=== PATIENT | female | born 1945 | race Caucasian/White ===

== ENCOUNTER 2018-01-12 20:31 | Emergency (ER) | payer MEDICARE, OTHER ==
--- NOTE | 2018-01-12 22:55 | EDM.PDOC ---
ED HPI GENERAL MEDICAL PROBLEM - General Chief Complaint: [employer] Problem Stated Complaint: VAGINAL BLEEDING/BLOOD CLOTS Time Seen by Provider: 01/12/18 21:11 Source of Information: Reports: Patient History Limitations: Reports: No Limitations - History of Present Illness INITIAL COMMENTS - FREE TEXT/NARRATIVE: 72-year-old female presents for evaluation and treatment of vaginal bleeding. Patient reports since August she has had some spotting. She estimates 1-2 tablespoons about every 6 weeks. She states today about 3 hours prior to arrival in the ER she started bleeding heavily. Reports that she is passing about baseball-sized clots. She has changed about 4 or 5 pads in the 3 hours since this started. She reports associated symptoms of dizziness, lightheadedness and headaches. She denies any chest pain, dysuria, increased urinary frequency, abdominal pain, pelvic pain or cramping or any bloody stools. She denies any hematuria. Patient reports the last 20 years she has been postmenopausal. She reports in July or August she fell and landed on her buttocks and back. Since then she's had some back pain on and off. patient is not on any blood thinners other than 81 mg aspirin daily. She also has a history of diabetes and hypertension. Primary care provider is Myrna Holden. - Related Data Allergies Allergy/AdvReac Type Severity Reaction Status Date / Time codeine Allergy Nausea and Verified 01/12/18 20:41 Vomiting ED ROS GENERAL - Review of Systems Review Of Systems: See Below Cardiovascular: Reports: Lightheadedness. Denies: Chest Pain GI/Abdominal: Denies: Abdominal Pain, Bloody Stool : Reports: Other (reports vaginal bleeding, passing baseball sized clots). Denies: Dysuria, Pain Musculoskeletal: Reports: Back Pain Neurological: Reports: Dizziness, Headache. Denies: Syncope ED EXAM, GI/ABD - Physical Exam Exam: See Below Exam Limited By: No Limitations General Appearance: Alert, WD/WN, No Apparent Distress, Obese Throat/Mouth: Normal Inspection, Normal Voice, No Airway Compromise Respiratory/Chest: No Respiratory Distress, Lungs Clear, Normal Breath Sounds Cardiovascular: Normal Peripheral Pulses, Regular Rate, Rhythm, No Murmur (Female) Exam: Normal Speculum Exam, Vaginal Bleeding Neurological: Alert, Oriented, Normal Cognition Psychiatric: Normal Affect, Normal Mood Skin Exam: Warm, Dry, Normal Color Course - Vital Signs Last Recorded V/S: Last Vital Signs Temp 97.1 F 01/12/18 20:37 Pulse 50 L 01/12/18 20:37 Resp 16 01/12/18 20:37 BP 186/95 H 01/12/18 20:37 Pulse Ox 99 01/12/18 20:37 Orthostatic Blood Pressure [ 118/54 Standing] Orthostatic Blood Pressure [ 132/62 Supine] - Orders/Labs/Meds Orders: Active Orders 24 hr Category Date Time Status Orthostatic Vital Signs [RC] ASDIRECTED Care 01/12/18 21:33 Active Pelvic Exam, Set Up [RC] ASDIRECTED Care 01/12/18 21:33 Active UA W/MICROSCOPIC [URIN] Stat Lab 01/12/18 21:55 Ordered Labs: Laboratory Tests 01/12/18 01/12/18 01/12/18 Range/Units 21:25 21:25 21:25 WBC 7.71 (3.98-10.04) K/mm3 RBC 4.59 (3.98-5.22) M/mm3 Hgb 13.9 (11.2-15.7) gm/L Hct 42.1 (34.1-44.9) % MCV 91.7 (79.4-94.8) fl MCH 30.3 (25.6-32.2) pg MCHC 33.0 (32.2-35.5) g/dl RDW Std Deviation 44.9 (36.4-46.3) fL Plt Count 132 L (182-369) K/mm3 MPV 11.2 (9.4-12.3) fl Neutrophils % (Manual) 61 H (40-60) % Band Neutrophils % 0 (0-10) % Lymphocytes % (Manual) 28 (20-40) % Atypical Lymphs % 0 % Monocytes % (Manual) 9 (2-10) % Eosinophils % (Manual) 2 (0.7-5.8) % Basophils % (Manual) 0 L (0.1-1.2) Platelet Estimate Adequate Plt Morphology Comment Normal RBC Morph Comment Normal PT 10.3 (9.5-12.1) SECONDS INR 0.94 APTT 25 (24-31) SECONDS Sodium 140 (136-145) mEq/L Potassium 3.9 (3.5-5.1) mEq/L Chloride 104 (98-107) mEq/L Carbon Dioxide 24 (21-32) mEq/L Anion Gap 15.9 H (5-15) BUN 20 H (7-18) mg/dL Creatinine 0.9 (0.55-1.02) mg/dL Est Cr Clr Drug Dosing 55.75 mL/min Estimated GFR (MDRD) > 60 (>60) mL/min BUN/Creatinine Ratio 22.2 H (14-18) Glucose 165 H (83-115) mg/dL Calcium 9.2 (8.5-10.1) mg/dL Total Bilirubin 0.3 (0.2-1.0) mg/dL AST 20 (15-37) U/L ALT 28 (14-59) U/L Alkaline Phosphatase 84 (46-116) U/L Total Protein 8.1 (6.4-8.2) g/dl Albumin 3.9 (3.4-5.0) g/dl Globulin 4.2 gm/dL Albumin/Globulin Ratio 0.9 L (1-2) Urine Color (Yellow) Urine Appearance (Clear) Urine pH (5.0-8.0) Ur Specific [place] (1.005-1.030) Urine Protein (Negative) Urine Glucose (UA) (Negative) Urine Ketones (Negative) Urine Occult Blood (Negative) Urine Nitrite (Negative) Urine Bilirubin (Negative) Urine Urobilinogen (0.2-1.0) Ur Leukocyte Esterase (Negative) Urine RBC (0-5) /hpf Urine WBC (0-5) /hpf Ur Epithelial Cells (0-5) /hpf Urine Bacteria (FEW) /hpf Urine Mucus (FEW) /hpf 01/12/18 Range/Units 21:55 WBC (3.98-10.04) K/mm3 RBC (3.98-5.22) M/mm3 Hgb (11.2-15.7) gm/L Hct (34.1-44.9) % MCV (79.4-94.8) fl MCH (25.6-32.2) pg MCHC (32.2-35.5) g/dl RDW Std Deviation (36.4-46.3) fL Plt Count (182-369) K/mm3 MPV (9.4-12.3) fl Neutrophils % (Manual) (40-60) % Band Neutrophils % (0-10) % Lymphocytes % (Manual) (20-40) % Atypical Lymphs % % Monocytes % (Manual) (2-10) % Eosinophils % (Manual) (0.7-5.8) % Basophils % (Manual) (0.1-1.2) Platelet Estimate Plt Morphology Comment RBC Morph Comment PT (9.5-12.1) SECONDS INR APTT (24-31) SECONDS Sodium (136-145) mEq/L Potassium (3.5-5.1) mEq/L Chloride (98-107) mEq/L Carbon Dioxide (21-32) mEq/L Anion Gap (5-15) BUN (7-18) mg/dL Creatinine (0.55-1.02) mg/dL Est Cr Clr Drug Dosing mL/min Estimated GFR (MDRD) (>60) mL/min BUN/Creatinine Ratio (14-18) Glucose (83-115) mg/dL Calcium (8.5-10.1) mg/dL Total Bilirubin (0.2-1.0) mg/dL AST (15-37) U/L ALT (14-59) U/L Alkaline Phosphatase (46-116) U/L Total Protein (6.4-8.2) g/dl Albumin (3.4-5.0) g/dl Globulin gm/dL Albumin/Globulin Ratio (1-2) Urine Color Yellow (Yellow) Urine Appearance Clear (Clear) Urine pH 6.0 (5.0-8.0) Ur Specific [place] > or = 1.030 (1.005-1.030) Urine Protein Trace H (Negative) Urine Glucose (UA) Negative (Negative) Urine Ketones Negative (Negative) Urine Occult Blood Trace-intact H (Negative) Urine Nitrite Negative (Negative) Urine Bilirubin Negative (Negative) Urine Urobilinogen 0.2 (0.2-1.0) Ur Leukocyte Esterase Negative (Negative) Urine RBC 0-5 (0-5) /hpf Urine WBC 0-5 (0-5) /hpf Ur Epithelial Cells 0-5 (0-5) /hpf Urine Bacteria Few (FEW) /hpf Urine Mucus Not seen (FEW) /hpf - Re-Assessments/Exams Free Text/Narrative Re-Assessment/Exam: 01/12/18 22:[address] Jay. Patient requires an endometrial biopsy. No further treatment needed today. He will see her in the clinic either tomorrow or Friday. Discussed the labs and my conversation with Dr. Jay with the patient. Answered all of her questions the best my ability. Stressed the importance of follow-up; she needs an endometrial biopsy and will likely have an ultrasound as well. Patient expresses understanding. Discharge Instructions as documented. Departure - Departure Time of Disposition: 22:53 Disposition: Home, Self-Care 01 Condition: Fair Clinical Impression: Post-menopausal bleeding - Discharge Information *PRESCRIPTION DRUG MONITORING PROGRAM REVIEWED*: No *COPY OF PRESCRIPTION DRUG MONITORING REPORT IN PATIENT ZARIA: No Instructions: Postmenopausal Bleeding, [id number] Referrals: Myrna Holden NP [Primary Care Provider] - Gamaliel Jay MD [Physician] - Forms: ED Department Discharge Additional Instructions: Call the [facility] tomorrow morning. Call [phone] Jay. He will see you tomorrow or Friday. you will need further follow-up for an endometrial biopsy and likely an ultrasound. In the meantime make sure you're drinking plenty of fluids. Rest. Please return to the ER if your symptoms change or worsen. - My Orders Last 24 Hours: My Active Orders 01/12/18 21:33 Orthostatic Vital Signs [RC] ASDIRECTED Pelvic Exam, Set Up [RC] ASDIRECTED 01/12/18 21:55 UA W/MICROSCOPIC [URIN] Stat - Assessment/Plan Last 24 Hours: My Active Orders 01/12/18 21:33 Orthostatic Vital Signs [RC] ASDIRECTED Pelvic Exam, Set Up [RC] ASDIRECTED 01/12/18 21:55 UA W/MICROSCOPIC [URIN] Stat
== END 2018-01-12 23:31 | disposition home or self-care (01) ==
LOC: JD.ED 20:31
DX: N95.0 Postmenopausal bleeding (principal); Z88.8 Allergy status to other drugs, medicaments and biological substances
CPT/HCPCS: 36415; 80053; 81001; 85007; 85027; 85610; 85730; 99283; 99284

== ENCOUNTER 2021-07-19 10:34 | Day surgery (SDC) | payer MEDICARE, OTHER ==
[2021-07-19] MEDS: Polymyxin B/Trimethoprim 10 ML Bottle EYELF SCH ×3 (10:10→11:39)
[2021-07-19] MEDS: Brimonidine 0.2% Ophth Soln 5 ML Bottle EYELF SCH ×3 (10:15→11:39)
[2021-07-19] MEDS: Phenylephrine 2.5% Ophth Soln 2 ML Bot EYELF SCH ×6 (10:20→11:16)
[2021-07-19] MEDS: Tropicamide 1% Ophth Soln 15 ML Bottle EYELF SCH ×4 (10:25→10:55)
[~2021-07-19 10:34] MED LIST: Cefuroxime 10 MG/ML SYRINGE EYELF SCH; Lidocaine 1% PF 2 ML SDV INJECT SCH; Pilocarpine 4% Ophth Soln 15 ML Bot EYELF SCH
[2021-07-19] MEDS: Tetracaine HCl/PF 0.5% 4 ML Bottle EYEBOTH SCH ×5 (11:01→11:24)
== END 2021-07-19 11:55 | disposition home or self-care (01) ==
LOC: JD.SDS 10:34
PROVIDERS: ATTEND Ophthalmology
DX: E11.36 Type 2 diabetes mellitus with diabetic cataract (principal); H25.812 Combined forms of age-related cataract, left eye; E11.39 Type 2 diabetes mellitus with other diabetic ophthalmic complication; H40.003 Preglaucoma, unspecified, bilateral; H16.223 Keratoconjunctivitis sicca, not specified as Sjogren's, bilateral; H02.831 Dermatochalasis of right upper eyelid; H02.834 Dermatochalasis of left upper eyelid; H57.813 Brow ptosis, bilateral; E78.00 Pure hypercholesterolemia, unspecified; I10 Essential (primary) hypertension; Z98.890 Other specified postprocedural states; Z87.891 Personal history of nicotine dependence; Z79.899 Other long term (current) drug therapy; Z79.84 Long term (current) use of oral hypoglycemic drugs; Z88.5 Allergy status to narcotic agent
CPT/HCPCS: 66984; C1780; J0697

== ENCOUNTER 2021-08-23 11:42 | Day surgery (SDC) | payer MEDICARE, OTHER ==
[2021-08-23] MEDS: Polymyxin B/Trimethoprim 10 ML Bottle EYERT SCH ×4 (13:33→15:17)
[2021-08-23] MEDS: Brimonidine 0.2% Ophth Soln 5 ML Bottle EYERT SCH ×4 (13:36→15:17)
[2021-08-23] MEDS: Phenylephrine 2.5% Ophth Soln 2 ML Bot EYERT SCH ×6 (13:39→15:12)
[2021-08-23] MEDS: Tropicamide 1% Ophth Soln 15 ML Bottle EYERT SCH ×4 (13:43→14:32)
[2021-08-23] MEDS: Tetracaine HCl/PF 0.5% 4 ML Bottle EYEBOTH SCH ×5 (14:48→15:12)
[2021-08-23] MEDS: Lidocaine 1% PF 2 ML SDV INJECT SCH ×2 (15:04→15:12)
[2021-08-23] MEDS: Pilocarpine 4% Ophth Soln 15 ML Bot EYERT SCH ×2 (15:13→15:17)
[2021-08-23] MEDS: Cefuroxime 10 MG/ML SYRINGE EYERT SCH ×2 (15:13→15:17)
== END 2021-08-23 15:45 | disposition home or self-care (01) ==
LOC: JD.SDS 11:42
PROVIDERS: ATTEND Ophthalmology
DX: E11.36 Type 2 diabetes mellitus with diabetic cataract (principal); H25.811 Combined forms of age-related cataract, right eye; F41.9 Anxiety disorder, unspecified; E78.00 Pure hypercholesterolemia, unspecified; I10 Essential (primary) hypertension; Z98.890 Other specified postprocedural states; Z88.5 Allergy status to narcotic agent; Z87.891 Personal history of nicotine dependence; Z79.899 Other long term (current) drug therapy; Z79.84 Long term (current) use of oral hypoglycemic drugs
CPT/HCPCS: 66984; C1780; J0697